=== PATIENT | female | born 1985 | race Two or more races ===

== ENCOUNTER 2020-01-15 08:16 | Outpatient (CLI) | payer OTHER | END 2020-01-15 09:16 | disposition home or self-care (01) | LOC: NST 08:16 | DX: Z34.83 Encounter for supervision of other normal pregnancy, third trimester (principal) ==

== ENCOUNTER 2020-01-20 08:29 | Outpatient (CLI) | payer OTHER ==
[2020-01-21] MEDS ORDERED: PRENATAL CAPLE1 EAC1 PO (07:59)
== END 2020-01-20 09:11 | disposition home or self-care (01) ==
LOC: NST 08:29
DX: Z34.83 Encounter for supervision of other normal pregnancy, third trimester (principal)

== ENCOUNTER 2020-01-20 11:39 | Inpatient (IN) | payer OTHER ==
[~2020-01-20] VITALS: Ht 167.6 cm; Wt 63.5 kg
[2020-01-21] MEDS ORDERED: PRENATAL CAPLE1 EAC1 PO (07:59)
== END 2020-01-23 13:07 | disposition home or self-care (01) | DRG 807 ==
LOC: LDR 11:39 → SURG-SUITE 01-21 17:49
PROVIDERS: ADMIT Obstetrics & Gynecology
PROC: 10E0XZZ Delivery of Products of Conception, External Approach (ICD-10-PCS; principal; 2020-01-21)
PROC: 0W8NXZZ Division of Female Perineum, External Approach (ICD-10-PCS; 2020-01-21)
PROC: 4A1HXFZ Monitoring of Products of Conception, Cardiac Rhythm, External Approach (ICD-10-PCS; 2020-01-21)
PROC: 3E033VJ Introduction of Other Hormone into Peripheral Vein, Percutaneous Approach (ICD-10-PCS; 2020-01-21)
PROC: 0WQNXZZ Repair Female Perineum, External Approach (ICD-10-PCS; 2020-01-21)
DX: O99.824 Streptococcus B carrier state complicating childbirth (principal); Z37.0 Single live birth; Z3A.40 40 weeks gestation of pregnancy